=== PATIENT | female | born 1980 | race Caucasian/White ===

== ENCOUNTER 2017-01-20 13:22 | Observation (INO) | payer SELFPAY ==
[~2017-01-20] VITALS: Ht 172.7 cm; Wt 97.1 kg
[2017-01-20] MEDS ORDERED: PREN-88 PO (13:31)
[2017-01-20] MEDS ORDERED: DEXT 5%/LACTATED RINGERS 1,000 ML IV SCH (14:00)
== END 2017-01-20 15:20 | disposition home or self-care (01) ==
LOC: L&D 13:22
PROVIDERS: ADMIT Specialist; ATTEND Specialist
DX: O42.92 Full-term premature rupture of membranes, unspecified as to length of time between rupture and onset of labor (principal); Z3A.41 41 weeks gestation of pregnancy
CPT/HCPCS: 76815; 76818; 99281; G0378; 96360